=== PATIENT | female | born 1970 | race Hispanic/Latino ===

== ENCOUNTER 2020-05-19 22:37 | Emergency (ER) | payer OTHER ==
[~2020-05-19] VITALS: Ht 152.4 cm; Wt 94.8 kg
[2020-05-19] MEDS ORDERED: METHYLPREDNISOLONE SOD SUCC 125 MG/2ML VIAL IM STA (23:23)
[2020-05-19] MEDS ORDERED: ACETAMINOPHEN 325 MG TAB ONE (23:30)
[2020-05-19] MEDS ORDERED: ACETAMINOPHEN 325 MG TAB PO ONE (23:30)
[2020-05-19] MEDS ORDERED: CEFTRIAXONE SOD 1 GM VIAL IM ONE (23:30)
[2020-05-19] MEDS ORDERED: AZITHROMYCIN 250 MG TAB PO ONE (23:30)
[2020-05-19] MEDS ORDERED: ALBUTEROL/IPRATROPIUM 3 ML NEB NEB ONE (23:30)
[2020-05-19] MEDS ORDERED: AZITHROMYCIN 250 MG TAB ONE (23:59)
[2020-05-20] MEDS ORDERED: CEFTRIAXONE SOD 1 GM VIAL ONE
[2020-05-20] MEDS ORDERED: METHYLPREDNISOLONE SOD SUCC 125 MG/2ML VIAL ONE
[2020-05-20] MEDS ORDERED: LIDOCAINE HCL 1% LOCAL INJ 20 ML VIAL ONE
--- NOTE | 2020-05-20 00:14 | Diagnostic Imaging Report ---
EXAMINATION: CXR 1 W - HOP INDICATION: Short of breath, fever COMPARISON: None FINDINGS: TUBES and LINES: None. LUNGS: Normal lung volumes. Lungs are clear. No consolidations. PLEURA: No pleural effusion or pneumothorax. HEART AND MEDIASTINUM: The cardiomediastinal silhouette is unremarkable. BONES AND SOFT TISSUES: No acute osseous lesion. Soft tissues are unremarkable. UPPER ABDOMEN: No free air under the diaphragm. IMPRESSION: No acute thoracic radiographic abnormality. Signed by: Christ Alejo DO on 05/20/2020 12:10 AM
[2020-05-20] MEDS ORDERED: AZITHROMYCIN500 MG PO (00:22)
[2020-05-20] MEDS ORDERED: PROAIR HFA INH8.5 GM PO (00:22)
[2020-05-20] MEDS ORDERED: IVERMECTIN3 MG PO (00:22)
[2020-05-20] MEDS ORDERED: PREDNISONE20 MG PO (00:22)
[2020-05-20] MEDS ORDERED: ALBUTEROL2.5 MG/3 M PO (00:22)
[2020-05-20] MEDS ORDERED: HYDROXYCHLOROQ200 MG PO (00:22)
--- NOTE | 2020-05-20 00:23 | Emergency Department Note ---
History of Present Illnes History of Present Illness Chief Complaint: chest tightness, sob History of Present Illness This is a 49 year old female. was doing well prior to this. 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 Required: No Radiation: Reports non-radiation Severity: mild Duration (how long): day(s) (1) Timing of current episode: constant Progression: worsening Chronicity: new Context: Denies recent illness, Denies recent surgery, Denies recent immobilization, Denies recent travel, Denies trauma/injury, Denies new medications, Denies hx of DVT/PE, Denies non-compliance w/ medications Relieving factors: none Exacerbating factors: none Associated symptoms: Reports denies other symptoms Treatments prior to arrival: none Past Medical/Family History Physician Review I have reviewed the patient's past medical and family history. Any updates have been documented here. Past Medical History Recent Fever: Yes (99.3 PER PT) Clinical Suspicion of Infectio: No New/Unexplained Change in Ment: No Other Medical History: GESTIANAL DM Past Surgical History: Tubal Ligation, , Hernia Repair Other Surgery: HERNIA REPAIR, UTERIAN TUMOR REMOVED Social History Smoking Cessation: Never Smoker Alcohol Use: Occasional Any Illegal Drug Use: No Physically hurt or threatened: No Other Any Pre-Existing Lines (PICC,: No Review of Systems Review of Systems Constitutional: Reports no symptoms EENTM: Reports no symptoms Cardiovascular: Reports as per HPI Respiratory: Reports as per HPI Gastrointestinal: Reports no symptoms Genitourinary: Reports no symptoms Musculoskeletal: Reports no symptoms Integumentary: Reports no symptoms Neurological: Reports no symptoms Psychological: Reports no symptoms Endocrine: Reports no symptoms Hematological/Lymphatic: Reports no symptoms Review of other systems: All other systems negative Physical Exam Related Data Allergies: Coded Allergies: No Known Drug Allergies (Verified Allergy, Unknown, 05/19/20) Triage Vital Signs Vital Signs Date Time Temp Pulse Resp B/P (MAP) Pulse Ox O2 Delivery O2 Flow Rate FiO2 05/19/20 22:48 100.2 99 18 198/86 100 Room Air Vital signs reviewed: Yes Physical Exam CONSTITUTIONAL Constitutional: Present well-developed, Present well-nourished HENT HENT: Present normocephalic, Present atraumatic, Present oropharynx clear/moist, Present nose normal HENT L/R: Present left ext ear normal, Present right ext ear normal EYES Eyes: Reports PERRL, Reports conjunctivae normal, Reports EOM normal NECK Neck: Present ROM normal, Present supple PULMONARY Pulmonary: Present effort normal, Present other (forced expiratory wheezes) CARDIOVASCULAR Cardiovascular: Present regular rhythm, Present heart sounds normal, Present capillary refill normal, Present normal rate GASTROINTESTINAL Abdominal: Present soft, Present nontender, Present bowel sounds normal GENITOURINARY Genitourinary: Present exam deferred SKIN Skin: Present warm, Present dry MUSCULOSKELETAL Musculoskeletal: Present ROM normal NEUROLOGICAL Neurological: Present alert, Present oriented x 3, Present no gross motor or sensory deficits PSYCHOLOGICAL Psychological: Present mood/affect normal, Present judgement normal Assessment & Plan Medical Decision Making MDM TAKE PRESCRIBED MEDS Assessment & Plan Final Impression: (1) Reactive airway disease (2) COVID-19 Depart Disposition: HOME, SELF-CARE Last Vital Signs Date Time Temp Pulse Resp B/P (MAP) Pulse Ox O2 Delivery O2 Flow Rate FiO2 05/19/20 23:07 100.2 98 18 168/84 100 05/19/20 22:48 Room Air Home Meds Active Scripts Ivermectin (Ivermectin) 3 Mg Tablet, 18 MG PO DAILY, #18 TAB Prov:PAUL MCCOLLUM 05/20/20 Hydroxychloroquine Sulfate (HYDROXYCHLOROQUINE SULFATE) 200 Mg Tablet, 200 MG PO Q12H, #20 TAB Prov:PAUL MCCOLLUM 05/20/20 Prednisone (PREDNISONE) 20 Mg Tab, 60 MG PO DAILY, #30 TAB TAKE ALL 3 PILLS AT ONCE (20 MG PILLS) Prov:PAUL MCCOLLUM 05/20/20 Albuterol Sulf* (PROAIR HFA INHALER*) 8.5 Gm Inh, 2 INH PO Q4HR PRN for COUGH, #1 INH 1 Refill PRN COUGH, SHORTNESS OF BREATH, WHEEZING// DISPENSE WITH SPACER Prov:PAUL MCCOLLUM 05/20/20 Albuterol Sulfate (ALBUTEROL SULFATE) 2.5 Mg/3 Ml Vial.neb, 2 INH PO Q4HR PRN for SHORTNESS OF BREATH, #120 UNIT 2 Refills PRN COUGH, WHEEZING, SHORTNESS OF BREATH Prov:PAUL MCCOLLUM 05/20/20 Azithromycin (AZITHROMYCIN) 500 Mg Tablet, 500 MG PO DAILY, #10 TAB Prov:PAUL MCCOLLUM 05/20/20 Medications in the ED Acetaminophen 975 mg STK-MED ONCE .ROUTE ; Start 05/19/20 at 23:30; Stop 05/19/20 at 23:26; Status DC Acetaminophen 975 mg ONCE ONCE PO Last administered on 05/19/20at 23:25; Admin Dose 975 MG; Start 05/19/20 at 23:30; Stop 05/19/20 at 23:31; Status UNV Albuterol/ Ipratropium 9 ml ONCE ONCE NEB ; Start 05/19/20 at 23:30; Stop 05/19/20 at 23:31; Status DC Methylprednisolone Sodium Succinate 200 mg ONCE STAT IM ; Start 05/19/20 at 23:23; Stop 05/19/20 at 23:29; Status DC Azithromycin 500 mg ONCE ONCE PO ; Start 05/19/20 at 23:30; Stop 05/19/20 at 23 :31; Status UNV Ceftriaxone Sodium 1 gm ONCE ONCE IM ; Start 05/19/20 at 23:30; Stop 05/19/20 at 23:31; Status UNV PAUL MCCOLLUM May 20, 2020 00:23
[2020-05-20] MEDS ORDERED: METHYLPREDNISOLONE SOD SUCC 125 MG/2ML VIAL IM ONE (00:45)
[2020-05-20 01:03] VITALS: BP 164/84
== END 2020-05-20 01:03 | disposition home or self-care (01) ==
LOC: FSED 23:00
DX: U07.1 COVID-19 (principal); J45.909 Unspecified asthma, uncomplicated
CPT/HCPCS: 71045; 87635; 96372; 99283; J0696; J2001; J2930 ×2

== ENCOUNTER 2020-06-23 23:27 | Emergency (ER) | payer OTHER ==
[~2020-06-23] VITALS: Ht 152.4 cm; Wt 94.8 kg
[~2020-06-23 23:27] MED LIST: ALBUTEROL2.5 MG/3 M PO; AZITHROMYCIN500 MG PO; HYDROXYCHLOROQ200 MG PO; IVERMECTIN3 MG PO; PREDNISONE20 MG PO; PROAIR HFA INH8.5 GM PO
--- NOTE | 2020-06-23 23:59 | Emergency Department Note ---
History of Present Illnes History of Present Illness Chief Complaint: Hypertension History of Present Illness This is a 50 year old female MY BP IS ELEVATED Onset (how long ago): day(s) (2) Location: BP HIGH Quality: NO PAIN Radiation: Denies non-radiation, Denies back, Denies neck, Denies extremity, Denies abdomen, Denies periumbilical, Denies flank, Denies proximal, Denies distal, Denies other Severity: mild Onset quality: gradual Duration (how long): day(s) (2) Timing of current episode: constant Progression: unchanged Chronicity: new Context: Denies recent illness, Denies recent surgery, Denies recent immobilization, Denies recent travel, Denies trauma/injury, Denies new medications, Denies hx of DVT/PE, Denies non-compliance w/ medications, Denies other Relieving factors: none Exacerbating factors: none Associated symptoms: Reports denies other symptoms Treatments prior to arrival: none Past Medical/Family History Physician Review I have reviewed the patient's past medical and family history. Any updates have been documented here. Past Medical History Other Medical History: GESTIANAL DM Past Surgical History: Tubal Ligation, , Hernia Repair Other Surgery: HERNIA REPAIR, UTERIAN TUMOR REMOVED Social History Smoking Cessation: Never Smoker Alcohol Use: None Review of Systems Review of Systems Constitutional: Reports no symptoms EENTM: Reports no symptoms Cardiovascular: Reports no symptoms Respiratory: Reports no symptoms Gastrointestinal: Reports no symptoms Genitourinary: Reports no symptoms Musculoskeletal: Reports no symptoms Integumentary: Reports no symptoms Neurological: Reports no symptoms Psychological: Reports no symptoms Endocrine: Reports no symptoms Hematological/Lymphatic: Reports no symptoms Physical Exam Related Data Allergies: Coded Allergies: No Known Drug Allergies (Verified Allergy, Unknown, 05/19/20) Vital signs reviewed: Yes Physical Exam CONSTITUTIONAL Constitutional: Present well-developed, Present well-nourished HENT HENT: Present normocephalic, Present atraumatic, Present oropharynx clear/moist, Present nose normal HENT L/R: Present left ext ear normal, Present right ext ear normal EYES Eyes: Reports PERRL, Reports conjunctivae normal NECK Neck: Present ROM normal PULMONARY Pulmonary: Present effort normal, Present breath sounds normal CARDIOVASCULAR Cardiovascular: Present regular rhythm, Present heart sounds normal, Present capillary refill normal, Present normal rate GASTROINTESTINAL Abdominal: Present soft, Present nontender, Present bowel sounds normal GENITOURINARY Genitourinary: Present exam deferred SKIN Skin: Present warm, Present dry MUSCULOSKELETAL Musculoskeletal: Present ROM normal NEUROLOGICAL Neurological: Present alert, Present oriented x 3, Present no gross motor or sensory deficits PSYCHOLOGICAL Psychological: Present mood/affect normal, Present judgement normal Assessment & Plan Medical Decision Making MDM HYPERTENSON ANXIETY Reassessment Reassessment BETTER Assessment & Plan Final Impression: (1) Uncontrolled hypertension Depart Disposition: HOME, SELF-custodial Meds Active Scripts Ivermectin (Ivermectin) 3 Mg Tablet, 18 MG PO DAILY, #18 TAB Prov:PAUL MCCOLLUM 05/20/20 Hydroxychloroquine Sulfate (HYDROXYCHLOROQUINE SULFATE) 200 Mg Tablet, 200 MG PO Q12H, #20 TAB Prov:PAUL MCCOLLUM 05/20/20 Prednisone (PREDNISONE) 20 Mg Tab, 60 MG PO DAILY, #30 TAB TAKE ALL 3 PILLS AT ONCE (20 MG PILLS) Prov:PAUL MCCOLLUM 05/20/20 Albuterol Sulf* (PROAIR HFA INHALER*) 8.5 Gm Inh, 2 INH PO Q4HR PRN for COUGH, #1 INH 1 Refill PRN COUGH, SHORTNESS OF BREATH, WHEEZING// DISPENSE WITH SPACER Prov:PAUL MCCOLLUM 05/20/20 Albuterol Sulfate (ALBUTEROL SULFATE) 2.5 Mg/3 Ml Vial.neb, 2 INH PO Q4HR PRN for SHORTNESS OF BREATH, #120 UNIT 2 Refills PRN COUGH, WHEEZING, SHORTNESS OF BREATH Prov:PAUL MCCOLLUM 05/20/20 Azithromycin (AZITHROMYCIN) 500 Mg Tablet, 500 MG PO DAILY, #10 TAB Prov:PAUL MCCOLLUM 05/20/20 JAMES ANGELES MD Jun 23, 2020 23:59
[2020-06-24] MEDS ORDERED: CLONIDINE HCL 0.1 MG TAB PO ONE
--- OUTSIDE RECORDS SUMMARY | 2020-06-24 01:52 | XMS REPORT | Continuity of Care Document ---
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 Name Role Phone [employer] Unavailable Un available Problems Problem Status Onset Date Classification Date Reported Comments Source History of anemia Active Problem 03/02/2019 [facility] BMI 39.0-39.9,adult Active Problem 03/02/2019 [facility] Abnormal urine Active Diagnosis 04/18/2018 [facility] Low iron Active Diagnosis 04/18/2018 [facility] Acute URI Active Diagnosis 03/02/2019 [facility] Medications Medication Details Route Status Patient Instructions Ordering Provider Order Date Source Amoxicillin 1 capsule Orally Active 500 mg Orally every 12 hrs [place] 02/28/2019 [facility] Bromfed DM 10 ml as needed Orally Active 30-2-10 MG/5ML Orally every 4-6 hrs PRN Feng 02/28/2019 [facility] Allergies, Adverse Reactions, Alerts Substance Category Reaction Severity Reaction type Status Date Reported Comments Source N.K.D.A. Adverse Reaction Info Not Available Adverse Reaction Active 02/28/2019 [facility] Immunizations No Data Provided for This Section Results No Data Provided for This Section Pathology Reports No Data Provided for This Section Diagnostic Reports No Data Provided for This Section Consultation Notes No Data Provided for This Section Discharge Summaries No Data Provided for This Section History and Physicals No Data Provided for This Section Vital Signs Vital Sign Value Date Comments Source Weight 205 02/28/2019 [facility] Height 60 0 02/28/2019 [facility] Heart Rate 64 02/28/2019 [facility] Diastolic (mm Hg) 86 02/28/2019 [facility] Systolic (mm Hg) 130 02/28/2019 [facility] Encounters No Data Provided for This Section Procedures No Data Provided for This Section Assessment and Plan No Data Provided for This Section Plan of Care No Data Provided for This Section Social History No Data Provided for This Section Family History No Data Provided for This Section Advance Directives No Data Provided for This Section Functional Status No Data Provided for This Section
--- OUTSIDE RECORDS SUMMARY | 2020-06-24 01:52 | XMS REPORT | Continuity of Care Document ---
Author Author [facility] t Organization [facility] Address 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 Attphys Unavailable Payers Payer Name Policy Type Policy Number Effective Date Expiration Date S yarely Umr Ppo [id number] 2020 00:00:00 [facility] Cdc Review Covid19 [id number] [facility] Problems Condition Name Condition Details Condition Category Status Onset Date Resolution Date Last Treatment Date Treating Clinician Comments Source History of asthma History of asthma Problem HL7.CCDAR2 Resolved [facility] Acute pharyngitis Acute pharyngitis Problem HL7.CCDAR2 Active [facility] Throat pain Throat pain Problem HL7.CCDAR2 Active [facility] Chronic tonsillitis Chronic tonsillitis Problem HL7.CCDAR2 Active [facility] History of hepatitis History of hepatitis Problem HL7.CCDAR2 Resolved [facility] Reactive airway disease Problem Active [facility] Infection due to severe acute respiratory syndrome coronavir us 2 (SARS-CoV-2) Problem Active [facility] History of anemia Hist ory of anemia Active Problem 03/02/2019 [facility] Problem Active 2019-03-02 02:07:59 Renetta Martinez BMI 39.0-39.9,adult BMI 39.0-39.9,adult Active Problem 03/02/2019 [facility] Problem Active 2019-03-02 02:07:59 Renetta Martinez Abnormal urine Abno rmal urine Active Diagnosis 04/18/2018 [facility] Diagnosis Active 2018-04-18 02:02:06 [facility] Low iron Low iron Active Diagnosis 04/18/2018 [facility] Diagnosis Active 2018-04-18 02:02:06 [facility] Acute URI Acut e URI Active Diagnosis 03/02/2019 [facility] Diagnosis Active 2019-03-02 02:07:59 [facility] Allergies, Adverse Reactions, Alerts Allergy Name Allergy Type Status Severity Reaction(s) Onset Date Inacti ve Date Treating Clinician Comments Source Dillon Carranza Active Info Not Available 2019-02-28 00:00:00 [facility] Family History Family Member Diagnosis Comments Start Date Stop Date Source Unknown Family Member Family history of malignant neoplasm Family [facility] Social History Social Habit Start Date Stop Date Quantity Comments Source Sex Assigned At 1970 00:00:00 1970 00:00:00 Female [facility] Medications Ordered Medication Name Filled Medication Name Start Date Stop Da te Current Medication? Ordering Clinician Indication Dosage Frequency Signature (SIG) Comments Components Source Albuterol Sulfate Albuterol Sulfate 2020-05-20 00:22:00 Yes 2 Every 4 Hours as needed for Shortness Of Breath [facility] Albuterol Sulfate (Proair Hfa Inhaler*) 8.5 Gm INH Alb uterol Sulfate (Proair Hfa Inhaler*) 8.5 Gm INH 2020-05-20 00:22:00 Yes 2 Every 4 Hours as needed for Cough [facility] Azithromycin Azithromycin 2020-05-20 00:22:00 Yes 500 Daily [facility] Hydroxychloroquine Sulfate Hydroxychloroquine Sulfate 2020-05-20 00:2 2:00 Yes 200 Every 12 Hours [facility] Ivermectin Ivermectin 2020-05-20 00:22:00 Yes 18 Neelima ly [facility] Prednisone Prednisone 2020-05-20 00:22:00 Yes 60 Neelima ly [facility] Amoxicillin 2019-02-28 00:00:00 Yes Danielle Toney 1 capsule [facility] Bromfed DM 2019-02-28 00:00:00 Yes Danielle Toney 10 ml as needed [facility] Clindamycin HCl - 300 MG Oral Capsule Clindamycin HCl - 300 MG Oral Capsule 2017-10-28 00:00:00 Yes KENNETH XIONG M.D. Q6 H TAKE 1 CAPSULE EVERY 6 HOURS DAILY. [facility] Vital Signs Vital Name Observation Time Observation Value Comments Source Body Temperature 2020-05-20 01:03:00 98.8 [degF] [facility] Weight 2020-05-19 22:48:00 209 [lb_av] [facility] BMI (Body Mass Index) 2020-05-19 22:48:00 40.8 kg/m2 [facility] Weight 2019-02-28 16:00:00 [facility] Juan Height 2019-02-28 16:00:00 [facility] Rate 2019-02-28 16:00:00 Renetta Martinez Diastolic (mm Hg) 2019-02-28 16:00:00 Amandeep Martinez Systolic (mm Hg) 2019-02-28 16:00:00 Jerrell Martinez BP Systolic 2017-10-28 09:23:00 136 mm[Hg] [facility] BP Diastolic 2017-10-28 09:23:00 88 mm[Hg] [facility] Height 2017-10-28 09:23:00 60 [in_us] [facility] Weight 2017-10-28 09:23:00 206 [lb_av] [facility] Body Mass Index Calculated 2017-10-28 09:23:00 40.23 kg/m2 [facility] Heart Rate 2017-10-28 09:23:00 75 /min [facility] Procedures Procedure Date / Time Performed Performing Clinician Jackie e History of Hernia repair [facility] History of section [facility] History of Knee surgery [facility] History of Ear surgery [facility] Plan of Care Planned Activity Planned Date Details Comments Source Instructions COVID-19: 01/28/2020 [facility] Instructions Viral Syndrome - Adult [facility] Encounters Start Date/Time End Date/Time Encounter Type Admission Type Attendi [facility] Facility Care Department Encounter ID Source 2020-05-19 23:00:00 2020-05-20 01:03:00 Departed Emergency Room PAUL MCCOLLUM [facility] [id number] [facility] 2019-02-28 11:00:00 2019-02-28 11:00:00 Outpatient [facility] [id number] [employer] 2018-04-14 16:01:00 2018-04-14 16:01:00 Outpatient [facility] [id number] [employer] 2018-04-03 11:28:00 2018-04-03 11:28:00 Outpatient [facility] [id number] [employer] 2017-10-28 08:30:00 2017-10-28 08:30:00 Appointment; KENNETH XIONG M.D. BYRD, MICHAEL, M.D. [facility] [id number] [facility] 2017-05-13 15:45:00 2017-05-13 15:45:00 Appointment; KENNETH XIONG M.D. BYRD, MICHAEL, M.D. [facility] [id number] [facility] 2017-05-02 15:30:00 2017-05-02 15:30:00 Appointment; KENNETH XIONG M.D. BYRD, MICHAEL, M.D. [facility] [id number] [facility] 2017-04-15 10:45:00 2017-04-15 10:45:00 Appointment; KENNETH XIONG M.D. BYRD, MICHAEL, M.D. [facility] [id number] [facility] Results Test Description Test Time Test Comments Results Result Comments Source CXR 1 VEW - HOPD 2020-05-20 00:09:00 [facility] [address] [place] [address] Patient Name: DESHAUN MULLIGAN MR #: [id number] : 1970 Age/Sex: 49/F Req #: [id number] Adm Physician: Ordered by: PAUL MCCOLLUM L Report #: [id number] Location: [facility] Room/Bed: Procedure: [id number] HOPD/CXR 1 VEW - [facility] Exam Date: 05/19/20 Exam Time: 2330 REPORT STATUS: Signed EXAMINATION: CXR 1 VEW - HOPD INDICATION: Short of breath, fever COMPARISON: None FINDINGS: TUBES and LINES: None. LUNGS: Normal lung volumes. Lungs are clear. No consolidations. PLEURA: No pleural effusion or pneumothorax. HEART AND MEDIASTINUM: The cardiomediastinal silhouette is unremarkable. BONES AND SOFT TISSUES: No acute osseous lesion. Soft tissues are unremarkable. UPPER ABDOMEN: No free air under the diaphragm. IMPRESSION: No acute thoracic radiographic abnormality. Signed by: Christ Alejo DO on 05/20/2020 12:10 AM Dictated By: CHRIST ALEJO DO Transcribed By: VIANEY on 05/20/209 COPY TO: PAUL MCCOLLUM
== END 2020-06-24 00:45 | disposition home or self-care (01) ==
LOC: FSED 23:56
DX: I10 Essential (primary) hypertension (principal)
CPT/HCPCS: 99283

== ENCOUNTER 2021-07-19 21:52 | Emergency (ER) | payer SELFPAY ==
[~2021-07-19] VITALS: Ht 152.4 cm; Wt 90.7 kg
[2021-07-19] MEDS ORDERED: IBUPROFEN 600 MG TAB PO STA (22:17)
[2021-07-19] MEDS ORDERED: AZITHROMYCIN250 MG PO ×2 (22:24→23:03)
[2021-07-19] MEDS ORDERED: DEXAMETHASONE4 MG PO ×2 (22:24→23:03)
[2021-07-19] MEDS ORDERED: ALLEGRA-D 12 H1 EACH PO ×2 (22:24→23:03)
[2021-07-19] MEDS ORDERED: IBUPROFEN600 MG PO ×2 (22:24→23:03)
[2021-07-19] MEDS ORDERED: PREDNISONE 20 MG TAB ONE (22:26)
[2021-07-19] MEDS ORDERED: IBUPROFEN 600 MG TAB ONE (22:27)
[2021-07-19] MEDS ORDERED: PREDNISONE 20 MG TAB PO ONE (22:30)
== END 2021-07-19 22:41 | disposition home or self-care (01) ==
LOC: FSED 21:58
DX: R50.9 Fever, unspecified (principal); R05 Cough; U07.1 COVID-19; I10 Essential (primary) hypertension
CPT/HCPCS: 99282; J7512